=== PATIENT | male | born 1975 | race Caucasian/White ===

== ENCOUNTER 2022-05-28 08:03 | Emergency (ER) | payer BC ==
[2022-05-28 08:08] VITALS: TEMP 97.7
[2022-05-28] MEDS ORDERED: METOCLOPRAMIDE 5 MG/ML 2 ML VIAL IVP STA (08:26)
[2022-05-28] MEDS ORDERED: MECLIZINE 12.5 MG TAB PO STA (08:26)
[2022-05-28] MEDS ORDERED: SODIUM CHLORIDE 0.9% 1,000 ML IV STA (08:26)
--- NOTE | 2022-05-28 08:29 | ED ---
General Adult HPI - General Chief complaint: Dizziness Stated complaint: nausea, hypertension Time Seen by Provider: 05/28/22 08:09 Source: patient Mode of arrival: ambulatory Limitations: no limitations - History of Present Illness Initial comments: Dictation was produced using [employer] dictation software. please excuse any grammatical, word or spelling errors. Chief Complaint: 47-year-old male presents emergency department for acute vertigo History of Present Illness: Patient is a 47-year-old male presents emergency department for acute vertigo. Patient denies any medical problems. He presents with . Patient allegedly woke up this morning feeling okay. He went to go take the dog out. After that he became acutely vertiginous to the point where he had to laid on the ground and had multiple bouts of nausea and vomiting. Patient states that his symptoms are severe. He states that he feels better when he closes his eyes and when he stays still. He states his symptoms get significantly worse when he tries to lay flat. Denies any fever, chills or night sweats. Denies any hearing loss or tinnitus. The ROS documented in this emergency department record has been reviewed and confirmed by me. Those systems with pertinent positive or negative responses have been documented in the HPI. All other systems are other negative and/or noncontributory. PHYSICAL EXAM: General Impression: Alert and oriented x3, not in acute distress HEENT: Normocephalic atraumatic, extra-ocular movements intact, pupils equal and reactive to light bilaterally, mucous membranes moist. Cardiovascular: Heart regular rate and rhythm Chest: Able to complete full sentences, no retractions, no tachypnea Abdomen: abdomen soft, non-tender, non-distended, no organomegaly Musculoskeletal: Pulses present and equal in all extremities, no peripheral edema Motor: no focal deficits noted Neurological: CN II-XII grossly intact, no focal motor or sensory deficits noted, nystagmus elicited with leftward gaze with fast phase to the left Skin: Intact with no visualized rashes Psych: Normal affect and mood ED course: 47-year-old male presents emergency Department with chief complaint of vertigo. Clinical presentation consistent with benign paroxysmal positional vertigo. This is patient's first case. Has no history of vertigo. Vital Signs upon arrival are within acceptable limits. Patient's symptoms exacerbated with lying position. He was left in a lying position for several seconds. He is then placed back into a sitting position. After couple minutes he reports improvement of symptomatology. Laboratory evaluation obtained. CBC metabolic panel is unremarkable. Computed tomography scan the brain is unremarkable. Patient given Antivert and Reglan. He is observed in the emergency department for approximately 2 hours and 8 minutes. Patient reevaluated at bedside at 10:15 AM on a be stable medical condition. Patient was ambulated with assistance and felt significantly improved. Patient's neuro discharge with when necessary medications. Advised follow-up with primary care doctor. Patient's given referral to ENT if he wants to follow-up for outpatient management. Return precautions discussed. Patient discharged. EKG interpretation: Ventricular rate 62, sinus rhythm,. 162, QS 112, QTC 46. No TX prolongation, no QTC prolongation, no ST or T-wave changes noted. Compared to EKG from 06/09/2018 showing T-wave inversion in lead 3 with Q-wave. There are no ST changes or T-wave changes to suggest active ischemia.. Overall, this EKG is unremarkable - Related Data Home Medications Medication Instructions Recorded Confirmed Aspirin EC [Ecotrin Low Dose] 81 mg PO HS 05/28/22 05/28/22 Meloxicam [Mobic] 7.5 mg PO BID 05/28/22 05/28/22 Rosuvastatin [Crestor] 10 mg PO DAILY 05/28/22 05/28/22 Previous Rx's Medication Instructions Recorded Meclizine [Antivert] 25 mg PO TID PRN #15 tab 05/28/22 Allergies Allergy/AdvReac Type Severity Reaction Status Date / Time No Known Allergies Allergy Verified 05/28/22 08:52 Review of Systems ROS Statement: Those systems with pertinent positive or pertinent negative responses have been documented in the HPI. ROS Other: All systems not noted in ROS Statement are negative. Past Medical History Additional Past Medical History / Comment(s): Arthritis History of Any Multi-Drug Resistant Organisms: None Reported Past Surgical History: No Surgical Hx Reported Past Psychological History: No Psychological Hx Reported Smoking Status: Never smoker Past Alcohol Use History: None Reported Past Drug Use History: None Reported General Exam Limitations: no limitations Course Vital Signs 05/28/22 05/28/22 08:06 10:07 Temperature 97.7 F Pulse Rate 78 70 Respiratory 20 18 Rate Blood Pressure 149/99 153/97 O2 Sat by Pulse 99 97 Oximetry Medical Decision Making - Lab Data Result diagrams: 05/28/22 08:34 05/28/22 08:34 Lab Results 05/28/22 05/28/22 Range/Units 08:34 08:34 WBC 9.8 (3.8-10.6) k/uL RBC 5.67 (4.30-5.90) m/uL Hgb 15.4 (13.0-17.5) gm/dL Hct 45.2 (39.0-53.0) % MCV 79.7 L (80.0-100.0) fL MCH 27.2 (25.0-35.0) pg MCHC 34.2 (31.0-37.0) g/dL RDW 14.4 (11.5-15.5) % Plt Count 248 (150-450) k/uL MPV 8.0 Neutrophils % 82 % Lymphocytes % 9 % Monocytes % 4 % Eosinophils % 3 % Basophils % 0 % Neutrophils # 8.1 H (1.3-7.7) k/uL Lymphocytes # 0.9 L (1.0-4.8) k/uL Monocytes # 0.4 (0-1.0) k/uL Eosinophils # 0.3 (0-0.7) k/uL Basophils # 0.0 (0-0.2) k/uL Sodium 138 (137-145) mmol/L Potassium 3.9 (3.5-5.1) mmol/L Chloride 105 (98-107) mmol/L Carbon Dioxide 23 (22-30) mmol/L Anion Gap 10 mmol/L BUN 16 (9-20) mg/dL Creatinine 0.78 (0.66-1.25) mg/dL Est GFR (CKD-EPI)AfAm >90 (>60 ml/min/1.73 sqM) Est GFR (CKD-EPI)NonAf >90 (>60 ml/min/1.73 sqM) Glucose 133 H (74-99) mg/dL Calcium 9.0 (8.4-10.2) mg/dL Disposition Clinical Impression: BPPV (benign paroxysmal positional vertigo) Disposition: HOME SELF-CARE Condition: Good Instructions (If sedation given, give patient instructions): Benign Paroxysmal Positional Vertigo (ED) Additional Instructions: google "[employer] [employer]" for instructions on how to perform to treat BPPV Prescriptions: Meclizine [Antivert] 25 mg PO TID PRN #15 tab PRN Reason: dizziness Is patient prescribed a controlled substance at d/c from ED?: No Referrals: Leilani Montelongo MD [Primary Care Provider] - 1-2 days Time of Disposition: 10:15
[2022-05-28 08:51] LABS: African American GFR (CKD) >90 (>60 ml/min/1.73 sqM); Anion Gap 10 mmol/L; Blood Urea Nitrogen 16 mg/dL (9-20); Carbon Dioxide 23 mmol/L (22-30); Chloride 105 mmol/L (98-107); Glucose 133 mg/dL (74-99); Non-African American GFR(CKD) >90 (>60 ml/min/1.73 sqM); Potassium 3.9 mmol/L (3.5-5.1); Sodium 138 mmol/L (137-145)
[2022-05-28 08:58] LABS: Basophils % (A) 0 %; Eosinophils # (A) 0.3 k/uL (0-0.7); Eosinophils % (A) 3 %; HCT 45.2 % (39.0-53.0); HGB 15.4 gm/dL (13.0-17.5); Lymphocytes # (A) 0.9 k/uL (1.0-4.8); Lymphocytes % (A) 9 %; MCH 27.2 pg (25.0-35.0); MCHC 34.2 g/dL (31.0-37.0); MCV 79.7 fL (80.0-100.0); Monocytes # (A) 0.4 k/uL (0-1.0); Monocytes % (A) 4 %; Neutrophils # (A) 8.1 k/uL (1.3-7.7); Neutrophils % (A) 82 %; Platelet Count 248 k/uL (150-450); RBC 5.67 m/uL (4.30-5.90); RDW 14.4 % (11.5-15.5); WBC 9.8 k/uL (3.8-10.6)
--- NOTE | 2022-05-28 09:21 | CT ---
EXAMINATION TYPE: CT brain wo con DATE OF EXAM: 05/28/2022 COMPARISON: None HISTORY: 47-year-old male with dizziness and vertigo TECHNIQUE: Examination was done in axial plane without intravenous contrast. Coronal and sagittal r econstructions performed. CT DLP: 1105.4 mGycm Automated exposure control for dose reduction was used. FINDINGS: There is no evidence of acute intracranial hemorrhage, acute ischemic changes, mass, mass-effect, or extra-axial fluid collection. There is no effacement of cerebral sulci or basal subarachnoid cister ns. There is no hydrocephalus. There is no midline shift. Simpson-white matter distinction is preserv ed. Paranasal sinuses and mastoid air cells well pneumatized. Undulating nasal septum. Orbits and globes are intact. IMPRESSION: No acute intracranial abnormality seen.
[2022-05-28 10:07] VITALS: BP 153/97; PULSE 70; RESP 18
== END 2022-05-28 10:23 | disposition home or self-care (01) ==
LOC: EC 08:03
DX: H81.13 Benign paroxysmal vertigo, bilateral (principal)
CPT/HCPCS: 36415; 93005; 80048; 85025; 70450; 99284; 96374; 96361 ×2; J2765